=== PATIENT | female | born 1945 | race Asian ===

== ENCOUNTER 2016-11-08 11:34 | Emergency (ER) | payer OTHER ==
[~2016-11-08] VITALS: Ht 170.2 cm; Wt 103.9 kg
[2016-11-08 11:20] VITALS: TEMP 98
[~2016-11-08 11:34] MED LIST: ASPIRIN325 M2 PO; TRIA37.541 PO
[2016-11-08 12:05] LABS: PLATELET COUNT 208 K/uL (152-353)
[2016-11-08 12:16] LABS: POTASSIUM 3.8 mmol/L (3.6-5.2)
[2016-11-08 13:47] VITALS: BP 160/89
== END 2016-11-08 13:47 | disposition home or self-care (01) ==
LOC: ED 11:34
DX: K29.60 Other gastritis without bleeding (principal); B96.81 Helicobacter pylori [H. pylori] as the cause of diseases classified elsewhere
CPT/HCPCS: 80053; 82550; 84484; 85027; 86318; 93005; 99284

== ENCOUNTER 2017-05-29 10:25 | Outpatient (CLI) | payer OTHER | END 2017-05-29 18:59 | disposition home or self-care (01) | LOC: RAD 10:25 | DX: M81.0 Age-related osteoporosis without current pathological fracture (principal) ==

== ENCOUNTER 2017-11-17 14:31 | Emergency (ER) | payer OTHER ==
[~2017-11-17] VITALS: Ht 170.2 cm; Wt 99.8 kg
[2017-11-17 14:37] VITALS: TEMP 98.1
[2017-11-17 15:49] LABS: PLATELET COUNT 213 K/uL (152-353)
[2017-11-17 15:55] LABS: POTASSIUM 3.4 mmol/L (3.6-5.2); SODIUM 137 mmol/L (136-145)
[2017-11-17 17:25] VITALS: BP 150/80
== END 2017-11-17 17:25 | disposition home or self-care (01) ==
LOC: ED 14:31
PROVIDERS: Emergency Medicine
DX: R60.9 Edema, unspecified (principal); I80.02 Phlebitis and thrombophlebitis of superficial vessels of left lower extremity
CPT/HCPCS: 80053; 81000; 82550; 84484; 85027; 85379; 99283

== ENCOUNTER 2017-11-23 13:46 | Outpatient (CLI) | payer OTHER | END 2017-11-23 22:50 | disposition home or self-care (01) | LOC: LAB 13:46 | DX: R60.0 Localized edema (principal); R06.09 Other forms of dyspnea | CPT/HCPCS: 83880; 85379 ==

== ENCOUNTER 2018-06-01 09:38 | Outpatient (CLI) | payer OTHER | END 2018-06-01 19:21 | disposition home or self-care (01) | LOC: US 09:38 | DX: I73.9 Peripheral vascular disease, unspecified (principal) ==

== ENCOUNTER 2018-10-26 15:31 | Outpatient (CLI) | payer OTHER | END 2018-10-26 22:43 | disposition home or self-care (01) | LOC: LAB 15:31 | DX: I10 Essential (primary) hypertension (principal); R60.0 Localized edema | CPT/HCPCS: 83880 ==

== ENCOUNTER 2019-12-17 15:43 | Emergency (ER) | payer OTHER ==
[~2019-12-17] VITALS: Ht 170.2 cm; Wt 104.3 kg
[2019-12-17 15:50] VITALS: TEMP 98.6
[2019-12-17] MEDS ORDERED: VERA80TAB PO (16:12)
[2019-12-17] MEDS ORDERED: KLOR-CON M2020 MEQ PO (16:13)
[2019-12-17] MEDS ORDERED: EZET10TA13 PO (16:14)
[2019-12-17 17:12] LABS: PARTIAL THROMBOPLASTIN TIME 24.5 SECONDS (24.5-33.6)
[2019-12-17 17:28] LABS: PLATELET COUNT 187 K/uL (152-353)
[2019-12-17 17:29] LABS: POTASSIUM 3.3 mmol/L (3.6-5.2); SODIUM 138 mmol/L (136-145)
[2019-12-17 18:50] VITALS: BP 157/68
== END 2019-12-17 18:50 | disposition home or self-care (01) ==
LOC: ED 15:43
PROVIDERS: Family Medicine
DX: E87.6 Hypokalemia (principal); I10 Essential (primary) hypertension; E78.49 Other hyperlipidemia; R00.2 Palpitations; R42 Dizziness and giddiness; Z79.82 Long term (current) use of aspirin; Z51.81 Encounter for therapeutic drug level monitoring
CPT/HCPCS: 80053; 80061; 81000; 82550; 84484; 85027; 85610; 85730; 93005; 99283

== ENCOUNTER 2020-04-15 11:52 | Outpatient (CLI) | payer OTHER ==
[~2020-04-15 11:52] MED LIST changes: +EZET10TA13 PO; +KLOR-CON M2020 MEQ PO; +VERA80TAB PO
[2020-04-16] MEDS ORDERED: [UNRECOGNIZED DRUG - OTHER] PO (18:17)
[2020-04-16] MEDS ORDERED: ZITHROMAX500 MG PO (18:19)
[2020-04-16] MEDS ORDERED: VITAMIN D35000 UNI1 (18:19)
[2020-04-16] MEDS ORDERED: FLOVENT HF110 MCG/AC INH (18:22)
[2020-04-16] MEDS ORDERED: [UNRECOGNIZED DRUG - OTHER] PO (18:25)
[2020-04-16] MEDS ORDERED: OMEGA PO (18:25)
== END 2020-04-15 22:01 | disposition home or self-care (01) ==
LOC: RAD 11:52
DX: Z03.818 Encounter for observation for suspected exposure to other biological agents ruled out (principal)

== ENCOUNTER 2020-04-16 11:34 | Inpatient (IN) | payer OTHER ==
[~2020-04-16] VITALS: Ht 170.2 cm; Wt 104.4 kg
[2020-04-16 12:57] LABS: PLATELET COUNT 251 K/uL (152-353)
[2020-04-16 13:28] LABS: POTASSIUM 3.9 mmol/L (3.6-5.2)
[2020-04-16 15:43] VITALS: BP 138/79; TEMP 98.2; Ht 170.2 cm; Wt 104.4 kg
[2020-04-16 16:00] VITALS: BP 124/82; TEMP 89.7
[2020-04-16] MEDS ORDERED: [UNRECOGNIZED DRUG - OTHER] PO (18:17)
[2020-04-16] MEDS ORDERED: VITAMIN D35000 UNI1 (18:19)
[2020-04-16] MEDS ORDERED: ZITHROMAX500 MG PO (18:19)
[2020-04-16] MEDS ORDERED: FLOVENT HF110 MCG/AC INH (18:22)
[2020-04-16] MEDS ORDERED: OMEGA PO (18:25)
[2020-04-16] MEDS ORDERED: [UNRECOGNIZED DRUG - OTHER] PO (18:25)
[2020-04-16 20:00] VITALS: BP 127/73; TEMP 98.4
[2020-04-17] VITALS: BP 133/74; TEMP 98.6
[2020-04-17 04:04] VITALS: BP 113/54; TEMP 98.4
[2020-04-17 04:35] LABS: PLATELET COUNT 201 K/uL (152-353)
[2020-04-17 04:54] LABS: POTASSIUM 3.8 mmol/L (3.6-5.2)
[2020-04-17 08:00] VITALS: BP 144/60; TEMP 98.5
[2020-04-17 12:00] VITALS: BP 151/63; TEMP 98.7
[2020-04-17 16:00] VITALS: BP 155/60; TEMP 100.3
[2020-04-17 20:14] VITALS: BP 114/62; TEMP 98.8
[2020-04-18 00:11] VITALS: BP 143/71; TEMP 98.3
[2020-04-18 04:15] VITALS: BP 127/70; TEMP 98.8
[2020-04-18 05:58] LABS: PLATELET COUNT 205 K/uL (152-353)
[2020-04-18 06:04] LABS: POTASSIUM 4.1 mmol/L (3.6-5.2)
[2020-04-18 08:00] VITALS: BP 148/69; TEMP 98.1
[2020-04-18 12:00] VITALS: BP 159/73; TEMP 98
[2020-04-18 16:00] VITALS: BP 151/70; TEMP 98.3
== END 2020-04-18 17:03 | disposition home or self-care (01) | DRG 177 ==
LOC: MED/SURG 11:34
PROVIDERS: ADMIT Family Medicine
DX: U07.1 COVID-19 (principal); J18.8 Other pneumonia, unspecified organism; E46 Unspecified protein-calorie malnutrition; I10 Essential (primary) hypertension; R07.89 Other chest pain; D64.89 Other specified anemias
CPT/HCPCS: 36415; 36600; 80053; 82728; 82805; 83735; 84100; 85027; 85379; 86140; 87040; 93005; 94667; 94668; 94760; 96374; J0456; J0696; J1650

== ENCOUNTER 2020-04-24 10:09 | Outpatient (CLI) | payer OTHER ==
[~2020-04-24 10:09] MED LIST changes: +FLOVENT HF110 MCG/AC INH; +OMEGA PO; +VITAMIN D35000 UNI1; +ZITHROMAX500 MG PO; +[UNRECOGNIZED DRUG - OTHER] PO; +[UNRECOGNIZED DRUG - OTHER] PO
== END 2020-04-24 23:13 | disposition home or self-care (01) ==
LOC: RAD 10:09
DX: J18.9 Pneumonia, unspecified organism (principal)

== ENCOUNTER 2021-07-27 11:12 | Outpatient (CLI) | payer OTHER ==
[2021-07-27 11:34] LABS: POTASSIUM 3.9 mmol/L (3.6-5.2)
== END 2021-07-27 19:01 | disposition home or self-care (01) ==
LOC: LABW 11:12
PROVIDERS: ATTEND Nurse Practitioner Primary Care
DX: E87.6 Hypokalemia (principal)
CPT/HCPCS: 36415; 80053